=== PATIENT | male | born 1965 | race Caucasian/White ===

== ENCOUNTER 2016-09-29 10:04 | Emergency (ER) | payer OTHER ==
[2016-09-29 10:40] VITALS: BP 130/83
--- NOTE | 2016-09-29 10:43 | UC ---
UC General HPI - HPI Summary HPI Summary: complaint of left arm swelling pulled a thron out of his arm2 days ago since then it has gotten more swollen and red and painful not taking any medication for symptoms UTD on tetanus 2011 - History of Current Complaint Chief Complaint: UCSkin Stated Complaint: LEFT FOREARM SKIN COMPLAINT Time Seen by Provider: 09/29/16 10:34 Hx Obtained From: Patient - Allergy/Home Medications Allergies/Adverse Reactions: Allergies Allergy/AdvReac Type Severity Reaction Status Date / Time No Known Allergies Allergy Verified 09/29/16 10:19 PMH/Surg Hx/FS Hx/Imm Hx Previously Healthy: Yes - Surgical History Surgical History: Yes Surgery Procedure, Year, and Place: right knee surgery, right wrist surgery, right leg surgery w/ bone grafts x2 - Family History Known Family History: Negative: Cardiac Disease, Hypertension, Diabetes - Social History Occupation: Employed Full-time Lives: With Family Alcohol Use: Occasionally Substance Use Type: None Smoking Status (MU): Never Smoked Tobacco Review of Systems Constitutional: Negative Skin: Rash Eyes: Negative ENT: Negative Respiratory: Negative Cardiovascular: Negative Gastrointestinal: Negative Genitourinary: Negative Motor: Negative Neurovascular: Negative Musculoskeletal: Negative Neurological: Negative Psychological: Negative All Other Systems Reviewed And Are Negative: Yes Physical Exam Triage Information Reviewed: Yes Appearance: No Pain Distress, Well-Nourished Vital Signs: Initial Vital Signs Temp 98.6 F 09/29/16 10:19 Pulse 64 09/29/16 10:19 Resp 16 09/29/16 10:19 BP 130/83 09/29/16 10:19 Pulse Ox 99 09/29/16 10:19 Vital Signs Reviewed: Yes Eyes: Positive: Conjunctiva Clear ENT: Positive: Pharynx normal, TMs normal Neck: Positive: No Lymphadenopathy Respiratory: Positive: Lungs clear, Normal breath sounds, No respiratory distress, No accessory muscle use Cardiovascular: Positive: RRR, No Murmur, Pulses Normal Musculoskeletal: Positive: No Edema Neurological: Positive: Alert Psychological Exam: Normal Skin: Positive: Other - left forearm- 1x1.5cm area of erythema surrounding puncture wound- purulent exudate Course/Dx - Course Course Of Treatment: exam completed- no foreign object seen - pt refuses x-ray at this time- will start keflex d/t infection adn he will followup with PCP or DR Strauss if no improvement - Differential Dx - Multi-Symptom Provider Diagnoses: cellulitis-left arm Discharge - Discharge Plan Condition: Stable Disposition: HOME Prescriptions: Cephalexin CAP* [Keflex CAP*] 500 mg PO TID #21 cap Patient Education Materials: Cellulitis (ED), Soft Tissue Foreign Body (ED) Referrals: Claudia Montemayor [Physician Window/Distribution Clerk] - Yohannes Strauss MD [Medical Doctor] - Additional Instructions: Please start antibiotic as directed Increase fluids and rest Take acetaminophen or ibuprofen for fever or pain Please review your discharge instructions. If your symptoms do not improve please call Dr Strauss or return to urgent care Your blood pressure is pre-hypertensive reading. Please contact your primary care provider within 1 day -4 weeks for further evaluation
== END 2016-09-29 11:19 | disposition home or self-care (01) ==
LOC: UCCORT 10:04
DX: L03.114 Cellulitis of left upper limb (principal)
CPT/HCPCS: 87070; 87205; 99202; G0463